=== PATIENT | female | born 1995 | race American Indian/Alaskan Native ===

== ENCOUNTER 2019-09-30 21:40 | Emergency (ER) | payer OTHER ==
[2019-09-30 21:55] VITALS: BP 140/92
[2019-10-01] MEDS ORDERED: ACETAMINOPHEN 325 MG TAB PO ONE (00:14)
[2019-10-01] MEDS ORDERED: D5W/0.9% NACL 1,000 ML IV SCH (01:00)
--- NOTE | 2019-10-01 01:46 | Ultrasound Report ---
ULTRASOUND OBSTETRIC, 10/01/2019 CLINICAL INFORMATION/INDICATION: Generalized abdominal pain/cramping in COMPARISON: None FINDINGS: There is a single intrauterine . BPD = 4.6 cm = 19 weeks, 6 day(s). Head circumference = 17.4 cm = 19 weeks, 6 day(s). Abdominal circumference = 14.9 cm = 20 weeks, 1 day(s). Femur length = 3.3 cm = 20 weeks, 3 day(s). Overall estimated sonographic age = 20 weeks, 1 day(s). heart rate is 148 beats per minute. position is cephalic. Placenta is 0 and grade right lateral . Amniotic fluid volume within normal limits. Impression: 1. Single living intrauterine with estimated sonographic age of 20 weeks, 1 day(s). Signer Name: Marian Gabriel MD Signed: 10/01/2019 1:41 AM Workstation Name: [id number]
[2019-10-01 01:54] LABS: Bilirubin,Urine Negative (Negative); Color,Urine Amber (Yellow)
[2019-10-01 01:56] LABS: Mucus,Urine 3+ /HPF
--- NOTE | 2019-10-01 02:19 | Emergency Department Report ---
ED HPI - General Chief complaint: Abdominal Pain Stated complaint: ABD PAIN, 19 WEEKS , BACK PAIN, LEFT LEG Time Seen by Provider: 10/01/19 00:10 Source: patient Mode of arrival: Ambulatory Limitations: No Limitations - History of Present Illness Initial comments: Patient is a 24-year-old asthmatic female who is approximately 19 weeks but who has not had care since she normally goes to [facility] and they are not accepting patients at this time who states she's had some lower abdominal lower back pain. Patient states she has a pressure-like sensation in the abdomen when she urinates but has no dysuria or urinary frequency. Patient states that the abdominal and back pain present for approximately 3 days and is greater on the left. She denies vaginal bleeding or vaginal discharge at this time. Patient states she is not eaten in the last day but is not having excessive nausea vomiting. ED Review of Systems ROS: Stated complaint: ABD PAIN, 19 WEEKS , BACK PAIN, LEFT LEG Other details as noted in HPI Comment: All other systems reviewed and negative ED Physical Exam - General Limitations: No Limitations General appearance: alert, in no apparent distress - Head Head exam: Present: atraumatic, normocephalic - Eye Eye exam: Present: normal appearance - ENT ENT exam: Present: mucous membranes moist - Neck Neck exam: Present: normal inspection - Respiratory Respiratory exam: Present: normal lung sounds bilaterally. Absent: respiratory distress, wheezes, rales, rhonchi - Cardiovascular Cardiovascular Exam: Present: regular rate, normal rhythm. Absent: systolic murmur, diastolic murmur, rubs, gallop - GI/Abdominal GI/Abdominal exam: Present: soft, normal bowel sounds. Absent: distended, tenderness, guarding, rebound - Extremities Exam Extremities exam: Present: normal inspection - Back Exam Back exam: Present: normal inspection - Neurological Exam Neurological exam: Present: alert, oriented X3 - Psychiatric Psychiatric exam: Present: normal affect, normal mood - Skin Skin exam: Present: warm, dry, intact, normal color. Absent: rash ED Course Vital Signs 09/30/19 21:54 Temperature 98.1 F Pulse Rate 94 H Respiratory 14 Rate Blood Pressure 140/92 O2 Sat by Pulse 98 Oximetry ED Medical Decision Making - Lab Data Lab Results 09/30/19 09/30/19 Range/Units 23:56 Unknown HCG, Quant 8974 H (0-4) mIU/mL Urine Color [place] (Yellow) Urine Turbidity Cloudy (Clear) Urine pH 6.0 (5.0-7.0) Ur Specific [place] 1.033 H (1.003-1.030) Urine Protein 30 mg/dl (Negative) mg/dL Urine Glucose (UA) Negative (Negative) mg/dL Urine Ketones Negative (Negative) mg/dL Urine Nitrite Negative (Negative) Urine Bilirubin Negative (Negative) Urine Urobilinogen 2.0 (<2.0) mg/dL Ur Leukocyte Esterase Negative (Negative) Urine WBC (Auto) 1.0 (0.0-6.0) /HPF Urine RBC (Auto) 4.0 (0.0-6.0) /HPF Urine Mucus 3+ /HPF - Radiology Data Patient: DARREL TRAYLOR MR#: [id number] : 1995 Acct:[id number] Age/Sex: 24 / F ADM Date: 09/30/19 Loc: ED Attending Dr: Ordering Physician: LISHA RIZZO MD Date of Service: 09/30/19 Procedure(s): US OB >= 14 weeks Fetus Accession Number(s): [id number] cc: LISHA RIZZO MD ULTRASOUND OBSTETRIC, 10/01/2019 CLINICAL INFORMATION/INDICATION: Generalized abdominal pain/cramping in COMPARISON: None FINDINGS: There is a single intrauterine . BPD = 4.6 cm = 19 weeks, 6 day(s). Head circumference = 17.4 cm = 19 weeks, 6 day(s). Abdominal circumference = 14.9 cm = 20 weeks, 1 day(s). Femur length = 3.3 cm = 20 weeks, 3 day(s). Overall estimated sonographic age = 20 weeks, 1 day(s). heart rate is 148 beats per minute. position is cephalic. Placenta is 0 and grade right lateral . Amniotic fluid volume within normal limits. Impression: 1. Single living intrauterine with estimated sonographic age of 20 weeks, 1 day(s). Signer Name: Marian Gabriel MD Signed: 10/01/2019 1:41 AM Workstation Name: [id number] Transcribed By: EB Dictated By: Marian Gabriel MD Electronically Authenticated By: Marian Gabriel MD Signed Date/Time: 10/01/19 0141 - Medical Decision Making Patient is a 24 showing a negative female who is presenting with some lower abdominal discomfort. Urinalysis is negative for urinary tract infection. Patient was given some IV hydration since she is not even in the last day or 2. Patient is actually greater than 20 weeks and she's been cleared for have an emergent condition however she will be sent to labor and delivery and reevaluated there as well. Critical care attestation.: If time is entered above; I have spent that time in minutes in the direct care of this critically ill patient, excluding procedure time. ED Disposition Clinical Impression: Abdominal pain affecting Disposition: DC-01 TO HOME OR SELFCARE Is pt being admited?: No Does the pt Need Aspirin: No Condition: Stable Instructions: Abdominal Pain (ED) Time of Disposition: 02:18
[2019-10-01 05:23] LABS: Blood,Urine NEG (Negative)
== END 2019-10-01 03:20 | disposition home or self-care (01) ==
LOC: ED 21:40
DX: O26.892 Other specified pregnancy related conditions, second trimester (principal); R10.30 Lower abdominal pain, unspecified; M54.5 Low back pain; M79.605 Pain in left leg; Z3A.20 20 weeks gestation of pregnancy
CPT/HCPCS: 36415; 76805; 81001; 84702; 99284

== ENCOUNTER 2019-10-17 14:49 | Outpatient (CLI) | payer OTHER ==
[2019-10-17 15:20] VITALS: BP 135/76
[2019-10-17 15:35] LABS: Amorphous Crystals,Urine 1+; Bilirubin,Urine NEG (Negative); Blood,Urine NEG (Negative); Color,Urine Yellow (Yellow); Mucus,Urine FEW /HPF; Protein,Urine <15 mg/dL mg/dL (Negative)
[2019-10-17 15:37] LABS: WBC,Urine < 1.0 /HPF (0.0-6.0)
[2019-10-17 15:42] LABS: Amphetamine Screen,Urine PRESUMPTIVE NEGATIVE; Benzodiazepines Screen,Urine PRESUMPTIVE NEGATIVE; Cocaine Screen,Urine PRESUMPTIVE NEGATIVE; Methadone Screen,Urine PRESUMPTIVE NEGATIVE; Opiate Screen,Urine PRESUMPTIVE NEGATIVE
[2019-10-17] MEDS ORDERED: LACTATED RINGERS 1,000 ML IV SCH (16:00)
[2019-10-17 16:12] LABS: Cannabinoid Screen,Urine PRESUMPTIVE POSITIVE
[2019-10-17] MEDS ORDERED: HYDROcodone/ACETAMINOPHEN 5-325 MG TAB PO PRN (16:18)
== END 2019-10-17 17:00 | disposition home or self-care (01) ==
LOC: TRG 14:49
PROVIDERS: ATTEND Obstetrics & Gynecology
DX: O26.892 Other specified pregnancy related conditions, second trimester (principal); M54.9 Dorsalgia, unspecified; R11.0 Nausea; R10.9 Unspecified abdominal pain; Z3A.21 21 weeks gestation of pregnancy
CPT/HCPCS: 80307; 81001